=== PATIENT | male | born 2000 | race African-American/Black ===

== ENCOUNTER 2024-12-21 21:00 | Inpatient (IN) | payer MEDICAID, OTHER ==
[~2024-12-21] VITALS: Ht 167.6 cm; Wt 61.2 kg
[~2024-12-21 21:00] MED LIST: FOLI-43 PO; KEPP500 PO; LEVE1000 MT; SERT-422; THIA100T72 PO
[2024-12-21 21:13] VITALS: O2SAT 98
[2024-12-21] MEDS: LEVETIRACETAM 1000MG PREMIX 100 ML IV ONE (21:35)
[2024-12-21] MEDS: SODIUM CHLORIDE 0.9% 1,000 ML IV ONE (21:35)
[2024-12-21] MEDS: LORAZEPAM 2MG/ML UD SYRINGE IV SCH (21:36)
[2024-12-21] MEDS: ONDANSETRON HCL 4MG/2ML INJ IV ONE (21:36)
[2024-12-21 21:37] LABS: BASOPHILS % 0.5 % (0.0-2.0); EOSINOPHILS % 0.9 % (0.0-5.0); HEMATOCRIT. 45.4 % (42.0-52.0); HEMOGLOBIN. 14.8 g/dL (14.0-18.0); LYMPHOCYTES % 20.3 % (20.0-50.0); MEAN PLATELET VOLUME 10.0 fl (7.4-10.4); MONOCYTES % 9.1 % (2.0-8.0); NEUTROPHILS % 69.2 % (40.0-76.0); PLATELET 199 x1000/uL (130-400); RED BLOOD CELL COUNT 4.86 mill/uL (4.7-6.1); RED CELL DISTRIBUTION WIDTH 14.6 % (11.6-14.6)
[2024-12-21 21:53] LABS: CREATININE 1.2 mg/dL (0.6-1.3); UREA NITROGEN BLOOD 9 mg/dL (9-23)
[2024-12-21 21:54] LABS: ETHANOL BLOOD < 10 mg/dL (<10)
[2024-12-21 21:55] LABS: ASPARTATE AMINOTRANSFERASE 23 IU/L (<34); BILIRUBIN DIRECT 0.2 mg/dL (<=3.0); BILIRUBIN TOTAL 0.5 mg/dL (0.1-1.0); PROTEIN TOTAL 7.3 g/dL (6.0-8.3)
[2024-12-22] VITALS: BP 117/72; PULSE 76; RESP 16; TEMP 36.8072
[2024-12-22] MEDS ORDERED: CLONIDINE 0.1MG TABLET PO PRN
[2024-12-22] MEDS ORDERED: LORAZEPAM 2MG/ML UD SYRINGE IV PRN
[2024-12-22] MEDS ORDERED: ACETAMINOPHEN 325MG TABLET PO PRN
[2024-12-22] MEDS ORDERED: MAGNESIUM/ALUMINUM HYDROXIDE/SIMETHICONE 30ML UDC PO PRN
[2024-12-22] MEDS ORDERED: DOCUSATE SODIUM 100MG CAPSULE PO PRN
[2024-12-22] MEDS ORDERED: IPRATROPIUM/ALBUTEROL 0.5-3(2.5)MG/3ML NEB HHN PRN
[2024-12-22] MEDS ORDERED: ONDANSETRON HCL 4MG/2ML INJ IV PRN
[2024-12-22] MEDS ORDERED: GUAIFENESIN 200MG/10ML SUGAR FREE UDC PO PRN
[2024-12-22] MEDS ORDERED: DEXTROSE 50% WATER 50ML SYRINGE IV PRN
[2024-12-22] MEDS: SODIUM CHLORIDE 0.9% 1,000 ML IV SCH (00:19)
[2024-12-22 08:00] VITALS: BP 118/62; PULSE 56; RESP 17; TEMP 36.6; O2SAT 100
[2024-12-22] MEDS: FAMOTIDINE 20MG/2ML VIAL IV SCH (09:00)
[2024-12-22] MEDS ORDERED: LEVETIRACETAM 1,500MG in NACL 100ML PREMIX IV SCH (09:00)
[2024-12-22] MEDS: LEVETIRACETAM 1500MG PREMIX 100 ML IV SCH (09:00)
[2024-12-22 10:21] LABS: CLARITY URINE CLEAR (CLEAR); COLOR URINE YELLOW (YELLOW); GLUCOSE URINE NEGATIVE (NEGATIVE); KETONES URINE 1+ (NEGATIVE); LEUKOCYTE ESTERASE URINE NEGATIVE (NEGATIVE); NITRITE URINE NEGATIVE (NEGATIVE); OCCULT BLOOD URINE NEGATIVE (NEGATIVE); PH URINE 6.0 (4.5-8.0); PROTEIN URINE NEGATIVE (NEGATIVE); SPECIFIC GRAVITY URINE 1.014 (1.005-1.030); UROBILINOGEN URINE 0.2 E.U./dL (0.2-1.0)
[2024-12-22 10:40] LABS: *AMPHETAMINES SCREEN URINE NEGATIVE (NEGATIVE)
[2024-12-22 10:41] LABS: *BARBITURATES SCREEN URINE NEGATIVE (NEGATIVE); *BENZODIAZEPINES SCREEN URINE NEGATIVE (NEGATIVE); *COCAINE SCREEN URINE NEGATIVE (NEGATIVE); CANNABINOID URINE SCREEN PRESUMPTIVE POSITIVE (NEGATIVE); METHADONE URINE SCREEN NEGATIVE (NEGATIVE); OPIATES URINE SCREEN NEGATIVE (NEGATIVE); PHENCYCLIDINE URINE SCREEN NEGATIVE (NEGATIVE)
[2024-12-22 10:42] LABS: ECSTASY MDMA SCREEN URINE NEGATIVE (NEGATIVE)
[2024-12-22] MEDS ORDERED: KEPP500 PO (11:01)
[2024-12-22 12:48] LABS: BASOPHILS % 0.3 % (0.0-2.0); EOSINOPHILS % 0.6 % (0.0-5.0); HEMATOCRIT. 39.7 % (42.0-52.0); HEMOGLOBIN. 13.2 g/dL (14.0-18.0); LYMPHOCYTES % 23.1 % (20.0-50.0); MEAN PLATELET VOLUME 10.8 fl (7.4-10.4); MONOCYTES % 9.3 % (2.0-8.0); NEUTROPHILS % 66.7 % (40.0-76.0); PLATELET 166 x1000/uL (130-400); RED BLOOD CELL COUNT 4.37 mill/uL (4.7-6.1); RED CELL DISTRIBUTION WIDTH 14.7 % (11.6-14.6)
[2024-12-22 13:03] LABS: CREATININE 0.9 mg/dL (0.6-1.3); TRIGLYCERIDE 101 mg/dL (0-150); UREA NITROGEN BLOOD < 5 mg/dL (9-23)
[2024-12-22 13:04] LABS: LDL CHOLESTEROL 131 mg/dL (5-100)
[2024-12-22 13:05] LABS: TROPONIN I HIGH SENSITIVITY 5 ng/L (3.0-53)
[2024-12-22 13:08] LABS: T4 FREE 1.04 ng/dL (0.89-1.76)
== END 2024-12-22 14:39 | disposition home or self-care (01) | DRG 53 ==
LOC: ER 21:00 → 8WST 22:04 → EDBEDREQTM 22:34 → EDBEDREQ 22:34 → ENRESERV 23:12
PROVIDERS: ADMIT Internal Medicine; ATTEND Internal Medicine
DX: G40.909 Epilepsy, unspecified, not intractable, without status epilepticus (principal); E87.20 Acidosis, unspecified; D72.829 Elevated white blood cell count, unspecified; Z91.199 Patient's noncompliance with other medical treatment and regimen due to unspecified reason; Z79.899 Other long term (current) drug therapy
CPT/HCPCS: 36415; 80048; 80061; 80076; 80305; 80320; 81003; 82542; 82550; 83605; 83735; 84439; 84443; 84484; 85025; 93005; 96365; 99285; A4606; J1308; J1953; J2060; J2405; J7030; G0480